=== PATIENT | female | born 1960 | race Caucasian/White ===

== ENCOUNTER 2024-08-23 11:33 | Outpatient (REF) | payer OTHER, SELFPAY ==
[2024-08-23 13:32] LABS: Folate 19.8 ng/mL (> or = 4.0); Vitamin B12 619 pg/mL (200-900)
[2024-08-25 06:34] LABS: Lyme Abs Screen <0.90 index
== END 2024-08-23 11:34 | disposition home or self-care (01) ==
LOC: HO.LAB 11:33
PROVIDERS: PCP Internal Medicine; Visit Provider Psychiatry & Neurology Neurology
DX: G31.84 Mild cognitive impairment of uncertain or unknown etiology (principal)
CPT/HCPCS: 36415; 82607; 82746; 86617; 86618